=== PATIENT | female | born 1945 | race Caucasian/White ===

== ENCOUNTER 2018-03-17 18:13 | Emergency (ER) | payer MEDICARE ==
--- NOTE | 2018-03-17 18:54 | Emergency Department Record ---
History of Present Illness - General Chief Complaint: Syncope Stated Complaint: SYNCOPY AND VOMITING Time Seen by Provider: 03/17/18 18:44 Source: Patient, Family Mode of Arrival: Ambulatory Limitations: Other (Advanced Dementia) - History of Present Illness Initial Comments: 72 yo female presents with a brief episode just prior to arrival. She had been sitting for about 10 minutes with her in the barn while he was working. She became lightheaded and leaned over. He states she became woozy for about 10 seconds. No injury. No fall. No headache, no chest pain, no significant changes from her baseline that is significant for advanced dementia. At this time she states she feels tired. She has had poor appetite recently. She had a small bowel of cereal for breakfast and for lunch. PCP is Hankenson. VARGAS Complaint: Collapsed (few senconds) -: Minutes(s) Prodromal Symptoms: Lightheaded Description of Event: Other (No loss of breathing or color) -: Second(s) Witnessed: Yes - by bystander Injuries Sustained Associated with Event: None Current Symptoms: Weakness History: Previous syncopal episode Treatments Prior to Arrival: None - [place] Coma Scale Eye Response: (4) Open spontaneously Motor Response: (6) Obeys commands Verbal Response: (5) Oriented (at her baseline) [place] Total: 15 - Related Data Previous Rx's Medication Instructions Recorded Cephalexin [Keflex] 500 mg PO TID #21 cap 03/17/18 Allergies Allergy/AdvReac Type Severity Reaction Status Date / Time No Known Drug Allergies Allergy Verified 03/17/18 19:38 Review of Systems Constitutional: Reports: Malaise, Weakness. Denies: Chills, Fever Eyes: Denies: Eye discharge, Eye pain, Photophobia, Vision change ENT: Denies: Congestion, Epistaxis, Throat pain Respiratory: Reports: Cough (about a week). Denies: Dyspnea, Hemoptysis, Stridor, Wheezes Cardiovascular: Denies: Chest pain, Palpitations, Syncope Endocrine: Denies: Fatigue, Polydipsia Gastrointestinal: Reports: Nausea. Denies: Abdominal pain, Diarrhea, Vomiting Genitourinary: Denies: Dysuria, Urgency Musculoskeletal: Denies: Arthralgia, Back pain, Myalgia Skin: Denies: Bruising, Change in color, Rash Neurological: Reports: Confusion (chronic dementia). Denies: Headache, Numbness , Paresthesias, Weakness Psychiatric: Denies: Anxiety Hematological/Lymphatic: Denies: Blood Clots, Easy bleeding, Easy bruising, Swollen glands Past Medical History - SOCIAL HISTORY Smoking Status: Never smoker - RESPIRATORY Hx Respiratory Disorders: No - CARDIOVASCULAR Hx Cardio Disorders: No - NEURO Hx Neuro Disorders: Yes Hx Dementia: Yes (Frontal global dementia) Hx Speech Problem: Yes ("trouble finding words") - GI Hx GI Disorders: No - Hx Genitourinary Disorders: No - ENDOCRINE Hx Endocrine Disorders: No - MUSCULOSKELETAL Hx Musculoskeletal Disorders: Yes Hx Arthritis: Yes (hands) - PSYCH Hx Psych Problems: No - HEMATOLOGY/ONCOLOGY Hx Hematology/Oncology Disorders: No Family Medical History Hx Diabetes: Mother Hx Stroke: Mother Physical Exam - General General Appearance: Alert, Oriented x3 (baseline per ), Cooperative, No acute distress Limitations: No limitations - Head Head exam: Atraumatic, Normal inspection - Eye Eye exam: Normal appearance, PERRL. negative: Conjunctival injection, Scleral icterus - ENT ENT exam: Normal exam, Mucous membranes moist Ear exam: Normal external inspection Nasal Exam: Normal inspection Mouth exam: Normal external inspection Teeth exam: Normal inspection Throat exam: Normal inspection - Neck Neck exam: Normal inspection - Respiratory Respiratory exam: Normal lung sounds bilaterally. negative: Respiratory distress - Cardiovascular Cardiovascular Exam: Regular rate, Normal rhythm, Normal heart sounds Peripheral Pulses: 2+: Radial (R), Radial (L) - GI/Abdominal GI/Abdominal exam: Soft. negative: Tenderness - Rectal Rectal exam: Deferred - exam: Deferred - Extremities Extremities exam: Normal inspection, Full ROM, Normal capillary refill. negative: Tenderness - Back Back exam: Reports: Normal inspection, Full ROM. Denies: Muscle spasm, Rash noted, Tenderness - Neurological Neurological exam: Alert, CN II-XII intact. negative: Altered, Motor sensory deficit - Psychiatric Psychiatric exam: Normal affect, Normal mood - Skin Skin exam: Dry, Intact, Normal color, Warm Course - Reevaluation(s) Reevaluation #1: EKG 03/17/18 1850 Normal sinus rhythm, rte 60, intervals normal, axis normal, ST normal, no changes from the [id number] 03/17/18 18:57 03/17/18 20:00 The CBC and CMP were reviewed No acute changes Normal Troponin with a normal EKG. 03/17/18 20:50 The HCT was read as no acute process The patient is feeling much better with IVF Cath UA obtained. 03/17/18 21:01 UA is concentrated consistent with dehydration. Mild increase in AG as well The UA is N Positive as well. 03/17/18 21:53 After IVF the patient is doing very well. She is up ambulatory stable at baseline. Awaiting CXR for cough Medical Decision Making - Lab Data Result diagrams: 03/17/18 19:05 03/17/18 19:05 Disposition Disposition: Discharge Clinical Impression: Syncope Qualifiers: Syncope type: unspecified Qualified Code(s): R55 - Syncope and collapse Urinary tract infection Qualifiers: Urinary tract infection type: site unspecified Hematuria presence: without hematuria Qualified Code(s): N39.0 - Urinary tract infection, site not specified Disposition: Home, Self-Care Condition: (1) Good Instructions: Dehydration (ED), Urinary Tract Infection in Women (ED), Syncope (ED) Additional Instructions: Stay hydrated Return to the ER if Cindy has any weakness, pain, or any new concerns Prescriptions: Cephalexin [Keflex] 500 mg PO TID #21 cap Forms: Patient Portal Access Time of Disposition: 21:55 Quality - Quality Measures Quality Measures: N/A - Blood Pressure Screening Does Patient Have Any of the Following: No Blood Pressure Classification: Pre-Hypertensive BP Reading Systolic Measurement: 116 Diastolic Measurement: 88 Screening for High Blood Pressure: < Pre-Hypertensive BP, F/U Documented > [ [id number]] Pre-Hypertensive Follow-up Interventions: Referral to alternative/primary care provider.
[2018-03-17] MEDS ORDERED: ONDANSETRON HCL IV 4 MG/2 ML VIAL IVP ONE (18:55)
[2018-03-17] MEDS ORDERED: 0.9 % SODIUM CHLORIDE 1,000 ML BAG IV ONE (18:55)
[2018-03-17 19:16] LABS: BASO % 0.2 % (0-6); GRAN % 74.4 % (47-80); LYMPH % 14.3 % (16-45); MEAN CORPUSCULAR HEMOGLOBIN 30.9 pg (27-33); MEAN CORPUSCULAR HGB CONC 32.5 g/dl (32-36); MEAN PLATELET VOLUME 8.9 fl (7.4-10.4); MONO % 11.1 % (0-9); PLATELET COUNT 293 K/uL (130-400); RED BLOOD COUNT 4.21 M/uL (3.80-5.40); RED CELL DISTRIBUTION WIDTH 13.4 % (11.5-14.5); WHITE BLOOD COUNT W/O DIFF 4.7 K/uL (4.2-12.2)
[2018-03-17 19:28] LABS: BLOOD UREA NITROGEN 20 mg/dL (8-23); CREATININE 0.9 mg/dL (0.5-0.9); EST GLOMERULAR FILTRATION RATE > 60 mL/min
[2018-03-17 19:29] LABS: TOTAL PROTEIN 7.4 g/dL (6.6-8.7)
[2018-03-17 19:31] LABS: GLUCOSE,RANDOM 110 mg/dL (74-109)
[2018-03-17 19:33] LABS: ALT/SGPT 15 U/L (<33)
[2018-03-17 19:34] LABS: ALB/GLOB RATIO 1.7 (1.1-1.8); ALBUMIN 4.7 g/dL (4.0-5.0); ALKALINE PHOSPHATASE 80 U/L (35-104); AST/SGOT 23 U/L (10.0-35.0)
[2018-03-17 20:55] LABS: URINE BILIRUBIN NEGATIVE (NEGATIVE); URINE BLOOD TRACE-I (NEGATIVE); URINE COLOR YELLOW; URINE GLUCOSE (UA) NEGATIVE (NEGATIVE); URINE KETONE 15 mg/dL (NEGATIVE); URINE LEUKOCYTE ESTERASE NEGATIVE (NEGATIVE); URINE NITRITE POSITIVE (NEGATIVE)
[2018-03-17 20:57] LABS: URINE APPEARANCE CLOUDY
[2018-03-17] MEDS ORDERED: SODIUM CHLORIDE 0.9% 500 ML IV ONE (21:01)
[2018-03-17 21:02] LABS: URINE BACTERIA 4+; URINE MUCUS LIGHT; URINE RBC 0 - 2 (NONE SEEN); URINE WBC 0 - 2 (0-2/hpf)
[2018-03-17] MEDS ORDERED: CEFTRIAXONE SODIUM 1 GM in 0.9 % SODIUM CHLORIDE 100ML 100 ML IVPB ONE (21:04)
--- NOTE | 2018-03-19 20:08 | CT SCAN REPORT ---
EXAM: CT SCAN HEAD WO CONTRAST HISTORY: SYNCOPAL EPISODE. TECHNIQUE: Axial CT scan of the head performed without IV contrast. COMPARISON: Head CT 09/06/13. FINDINGS: No definite acute intracranial hemorrhage identified. No focal mass effect or midline shift evident. Moderate generalized atrophy with chronic- appearing deep white matter changes as before, nonspecific but likely representing some chronic small vessel deep white matter ischemic disease. No definite acute infarct or intracranial mass lesion seen. No depressed calvarial fracture evident. IMPRESSION: 1. GENERALIZED ATROPHY WITH CHRONIC-APPEARING DEEP WHITE MATTER CHANGES. 2. NO DEFINITE ACUTE INTRACRANIAL HEMORRHAGE OR FOCAL MASS EFFECT IDENTIFIED. JOB NUMBER: [id number] [facility]
--- NOTE | 2018-03-19 20:40 | RADIOLOGY REPORT ---
EXAM: CHEST 1 VIEW HISTORY: PRODUCTIVE COUGH. TECHNIQUE: Single AP view of the chest. COMPARISON: Two-view chest 09/06/13. FINDINGS: More shallow inspiration today. Heart size felt to be within normal limits. No definite acute infiltrate seen. No pleural effusion or pneumothorax evident. IMPRESSION: SOMEWHAT SHALLOW INSPIRATION. NO ACUTE INFILTRATE IDENTIFIED. JOB NUMBER: [id number] [facility]
== END 2018-03-17 22:38 | disposition home or self-care (01) ==
LOC: ER 18:13
DX: R55 Syncope and collapse (principal); N39.0 Urinary tract infection, site not specified; R05 Cough; F03.90 Unspecified dementia, unspecified severity, without behavioral disturbance, psychotic disturbance, mood disturbance, and anxiety
CPT/HCPCS: 99284 ×2; 96365; 96375; 85025; 80053; 81001; 84484; 71045; 70450; 93005; 93010; J2405; J7030